=== PATIENT | male | born 1995 | race Caucasian/White ===

== ENCOUNTER 2022-06-14 16:06 | Emergency (ER) | payer OTHER, SELFPAY ==
[2022-06-14 16:28] VITALS: BP 146/95; PULSE 95; RESP 14; TEMP 37.7; O2SAT 100
--- NOTE | 2022-06-14 16:43 | ED.GENADULT ---
HPI - General Adult General Chief complaint: Nausea/Vomiting/Diarrhea Stated complaint: nausea Time Seen by Provider: 06/14/22 16:43 Source: patient Mode of arrival: ambulatory Limitations: no limitations History of Present Illness HPI narrative: 18-year-old male patient presents to [facility] where 1 of the knee about 1 week. Patient states he has had some low-grade fevers, body aches, chills denies any sore throat, congestion or headaches. Related Data Home Medications Medication Instructions Recorded Confirmed loratadine 10 mg tablet (Claritin) 10 mg PO DAILY 07/22/21 06/14/22 Allergies Allergy/AdvReac Type Severity Reaction Status Date / Time No Known Allergies Allergy Verified 06/14/22 16:27 Review of Systems Review of Systems: CONSTITUTIONAL: Has it fever, chills, or sweats. EYES: Denies visual changes, redness, or discharge. ENT: Denies rhinorrhea, congestion, sore throat, or otalgia. CARDIOVASCULAR: Denies chest pain, palpitations, or edema. RESPIRATORY: Denies cough or dyspnea. GASTROINTESTINAL: Denies abdominal pain, positive nausea, positive vomiting, denies diarrhea. GENITOURINARY: Denies dysuria or hematuria. SKIN: Denies rash or itching. MUSCULOSKELETAL: Denies back pain, joint pain, or myalgia. NEUROLOGIC: Denies headache, numbness, or weakness. PSYCHIATRIC: Denies anxiety or depression. PMFSH Past Medical History Medical History Cat allergies Family History Family History Mother Hypertension Grandparent Carcinoma of colon Malignant neoplasm of prostate Father Skin cancer Other Diabetes mellitus Family history of allergic disorder Family history of hypercholesterolemia Social History Social History Smoking status: Never smoker Alcohol intake: current Substance use: never Substance use type: does not use Comments at the time of my signature I agree with nursing past medical history, surgical, social, and family history. There is no relevant family history pertinent to the presenting complaint. Exam Narrative: GENERAL: Well-appearing, well-nourished, and in no acute distress. HEAD: Normocephalic, atraumatic. EYES: PERRLA and EOMI. ENT: Nares with erythema edema noted bilateral, no rhinorrhea or epistaxis. Mucous membranes moist. posterior pharynx with no erythema, tonsillar enlargement, exudates or lesions present. Bilateral TMs are clear no erythema or foreign bodies the canal. NECK: Supple. No lymphadenopathy CHEST: Clear to auscultation. No respiratory distress. HEART: Regular rate and rhythm. No murmur heard. Normal peripheral pulses. ABDOMEN: Soft, nontender, nondistended, normal active bowel sounds. EXTREMITIES: Normal range of motion. No edema. SKIN: Warm, dry, no rash. NEURO: No focal deficits. Alert and oriented x3. Course Course Level of Care: Express Care Visit Vital Signs Vital signs: Vital Signs Temperature 37.7 C H 06/14/22 16:28 Pulse Rate 95 06/14/22 16:28 Respiratory Rate 14 06/14/22 16:28 Blood Pressure 146/95 H 06/14/22 16:28 Pulse Oximetry 100 06/14/22 16:28 Oxygen Delivery Room Air 06/14/22 16:28 Temperature 37.7 C H 06/14/22 16:28 Pulse Rate 95 06/14/22 16:28 Respiratory Rate 14 06/14/22 16:28 Blood Pressure 146/95 H 06/14/22 16:28 Pulse Oximetry 100 06/14/22 16:28 Oxygen Delivery Room Air 06/14/22 16:28 Vital signs reviewed The patient has been informed that they may have pre-hypertension or Hypertension based on a BP reading in the department. I recommend that the patient call the primary care provider listed on their discharge instructions or a physician of their choice this week to arrange follow up for further evaluation of possible pre-hypertension or Hypertension Medical Decision Making [facility] Medical
== END 2022-06-14 16:49 | disposition home or self-care (01) ==
PROVIDERS: Emergency Provider Nurse Practitioner Family; PCP Family Medicine
DX: J10.1 Influenza due to other identified influenza virus with other respiratory manifestations (principal); Z20.822 Contact with and (suspected) exposure to COVID-19
CPT/HCPCS: 87426; 87804; 99212; C9803; G0463

== ENCOUNTER 2022-08-20 18:37 | Emergency (ER) | payer OTHER, SELFPAY ==
[2022-08-20 18:43] VITALS: BP 141/94; PULSE 77; RESP 18; TEMP 36.6; O2SAT 100
[2022-08-20] MEDS: TETANUS,DIPHTHERIA,AC PERTUSSIS ADULT (0.5 ML) BOOSTRIX IM (19:04)
--- NOTE | 2022-08-20 19:09 | ED.WOUNDLAC ---
HPI - Wound/Laceration General Chief Complaint: Wound/Laceration Stated Complaint: Cut Finger Lt Hand Time Seen by Provider: 08/20/22 18:53 Source: patient and RN notes reviewed Mode of arrival: ambulatory Limitations: no limitations History of Present Illness HPI narrative: Patient presents today complaining of a laceration to his left 3rd finger pad that was sustained approximately 2 hours prior to arrival when he cut himself with his circular saw at home. Denies numbness or tingling in the finger. Currently rates pain 2/10. His last tetanus shot was 5 years ago. Related Data Home Medications Medication Instructions Recorded Confirmed loratadine 10 mg tablet (Claritin) 10 mg PO DAILY 07/22/21 08/20/22 Allergies Allergy/AdvReac Type Severity Reaction Status Date / Time No Known Allergies Allergy Verified 08/20/22 18:57 Review of Systems Review of Systems: CONSTITUTIONAL: Denies body aches, fever, chills, or sweats. EYES: Denies visual changes, redness, or discharge. ENT: Denies rhinorrhea, congestion, sore throat, or otalgia. CARDIOVASCULAR: Denies chest pain, palpitations, or edema. RESPIRATORY: Denies cough or dyspnea. GASTROINTESTINAL: Denies abdominal pain, nausea, vomiting, or diarrhea. GENITOURINARY: Denies dysuria or hematuria. SKIN: + laceration to left 3rd finger MUSCULOSKELETAL: Denies back pain, joint pain, or myalgia. NEUROLOGIC: Denies headache, numbness, tingling, or weakness. PSYCH: Denies depression or anxiety. [facility] Past Medical History Medical History Cat allergies Family History Family History Mother Hypertension Grandparent Carcinoma of colon Malignant neoplasm of prostate Father Skin cancer Other Diabetes mellitus Family history of allergic disorder Family history of hypercholesterolemia Social History Social History Smoking status: Never smoker Alcohol intake: current Substance use: never Substance use type: does not use Comments At time of signature, I have reviewed and agree with nursing past medical, surgical, social and family history unless otherwise noted. Please see nursing chart for further information. There is no relevant family history pertinent to the presenting complaint Exam Narrative: GENERAL: Well-appearing, well-nourished, and in no acute distress. HEAD: Normocephalic, atraumatic. EYES: EOMI. No redness or drainage. Conjunctivae normal. ENT: Mucous membranes pink and moist. NECK: Normal AROM. CHEST: No respiratory distress. EXTREMITIES: Normal range of motion. No edema. Left 3rd finger: 1 cm partial thickness irregular laceration to the distal finger pad. Avulsion of skin present. Mild active bleeding. Distal sensation intact. Capillary refill. Full range of motion of the finger. SKIN: Warm, dry, no rash. Capillary refill normal. Normal skin turgor. NEURO: No focal deficits. Alert and oriented x3. Gait steady. PSYCH: Normal affect. No signs of depression or anxiety. Course Course Level of Care: Express Care Visit Vital Signs Vital signs: Vital Signs Temperature 97.9 F 08/20/22 18:43 Pulse Rate 77 08/20/22 18:43 Respiratory Rate 18 08/20/22 18:43 Blood Pressure 141/94 H 08/20/22 18:43 Pulse Oximetry 100 08/20/22 18:43 Oxygen Delivery Room Air 08/20/22 18:43 Temperature 97.9 F 08/20/22 18:43 Pulse Rate 77 08/20/22 18:43 Respiratory Rate 18 08/20/22 18:43 Blood Pressure 141/94 H 08/20/22 18:43 Pulse Oximetry 100 08/20/22 18:43 Oxygen Delivery Room Air 08/20/22 18:43 Reviewed. Pt has been instructed to follow up with his PCP regarding his elevated blood pressure today. MDM - Wound/Laceration MDM Narrative Medical decision making narrative: One piece of loose skin was trimmed fro
== END 2022-08-20 19:20 | disposition home or self-care (01) ==
PROVIDERS: Emergency Provider Nurse Practitioner; PCP Family Medicine
DX: S61.203A Unspecified open wound of left middle finger without damage to nail, initial encounter (principal); W27.0XXA Contact with workbench tool, initial encounter; Z23 Encounter for immunization
CPT/HCPCS: 90471; 90715; 99213; G0463

== ENCOUNTER 2024-12-30 17:12 | Emergency (ER) | payer OTHER, SELFPAY ==
[2024-12-30 17:45] VITALS: BP 140/94; PULSE 73; RESP 18; TEMP 36.4; O2SAT 98
--- NOTE | 2024-12-30 18:25 | ED_ITS ---
HPI - General Adult General Chief complaint: Wound/Laceration Stated complaint: RT Hand Pinky Finger Time Seen by Provider: 12/30/24 18:27 Source: patient Mode of arrival: ambulatory Limitations: no limitations History of Present Illness HPI narrative: 29-year-old male patient presents to the [facility] with complaints of a right pinky finger laceration. Patient states that he was cleaning some things out from under a bed and cut his finger on the cat food can that was open. Patient states last tetanus shot was approximately 2 years ago. Related Data Home Medications ?Medication ?Instructions ?Recorded ?Confirmed ?Last Taken ?Type cetirizine 10 mg capsule (Zyrtec) 10 mg PO DAILY PRN 0 06/29/23 06/29/23 Unknown History multivitamin 1 tablet PO DAILY 06/29/23 0 06/29/23 Unknown History Allergies Allergy/AdvReac Type Severity Reaction Status Date / Time No Known Allergies Allergy Verified 12/30/24 17:55 Review of Systems Review of Systems: CONSTITUTIONAL: Denies fever, chills, or sweats. EYES: Denies visual changes, redness, or discharge. ENT: Denies rhinorrhea, congestion, sore throat, or otalgia. CARDIOVASCULAR: Denies chest pain, palpitations, or edema. RESPIRATORY: Denies cough or dyspnea. GASTROINTESTINAL: Denies abdominal pain, nausea, vomiting, or diarrhea. GENITOURINARY: Denies dysuria or hematuria. SKIN: Denies rash or itching. Positive laceration to right pinky finger MUSCULOSKELETAL: Denies back pain, joint pain, or myalgia. NEUROLOGIC: Denies headache, numbness, or weakness. PSYCHIATRIC: Denies anxiety or depression. [facility] Past Medical History Medical History Cat allergies Family History Family History Mother Hypertension Grandparent Carcinoma of colon Malignant neoplasm of prostate Father Skin cancer Other Diabetes mellitus Family history of allergic disorder Family history of hypercholesterolemia Social History Social History Smoking status: Never smoker Second hand tobacco smoke exposure: No Alcohol intake: current Substance use: never Substance use type: does not use Do You Feel Safe in your Home?: Yes Lack of Transportation: No Lack of Food: Never True Current Housing: I Have Housing Concerned About Future Housing: No Difficulty Paying Gas/Electric Bills: No Difficulty Paying for Meds: No Currently Unemployed: No Education: Bachelor's Degree Difficulty w/ Childcare or Family Care: No Living arrangements: with family Occupation/Education: occupation Gender identity (if verbalized by the patient): Male Spiritual care concerns: No Agree to blood products: Yes Exam Narrative: GENERAL: Well-appearing, well-nourished, and in no acute distress. HEAD: Normocephalic, atraumatic. EYES: PERRLA and EOMI. ENT: Nares clear, no rhinorrhea or epistaxis. Mucous membranes moist. NECK: Supple. No lymphadenopathy CHEST: Clear to auscultation. No respiratory distress. HEART: Regular rate and rhythm. No murmur heard. Normal peripheral pulses. ABDOMEN: Soft, nontender, nondistended, normal active bowel sounds. EXTREMITIES: Normal range of motion. No edema. SKIN: Warm, dry, no rash. patient has approximately 1.5 cm linear laceration it in between the D IP and PIP joints the laceration does not have a gaping opening and no fat exposure. Bleeding is controlled NEURO: No focal deficits. Alert and oriented x3. Course Course Level of Care: Express Care Visit Vital Signs Vital signs: Vital Signs Temperature 36.4 C L 12/30/24 17:45 Pulse Rate 73 12/30/24 17:45 Respiratory Rate 18 12/30/24 17:45 Blood Pressure 140/94 H 12/30/24 17:45 Pulse Oximetry 98 12/30/24 17:45 Oxygen Delivery Room Air 12/30/24 17:45 Temperature 36.4 C L 12/30/24 17:45 Pulse Rate 73 12/30/24 17:45 Respiratory Rate 18 12/30/24 17:45 Blood Pressure 140/94 H 12/30/24 17:45 Pulse Oximetry 98 12/30/24 17:45 Oxygen Delivery Room Air 12/30/24 17:45 vital signs reviewed. The patient has been informed that they may have pre-hypertension or Hypertension based on a BP reading in the department. I recommend that the patient call the primary care provider listed on their discharge instructions or a physician of their choice this week to arrange follow up for further evaluation of possible pre-hypertension or Hypertension Procedures Laceration Laceration 1: Date: 12/30/24 Time: 18:57 Site: hand Side (If applicable): right Size (cm): 1.5 Description: linear Local Anesthetic: none Pre-repair: irrigated ====== Skin Level ====== ====== Subcutaneous Layer ====== ====== Muscle Layer ====== ====== Tendon Layer ====== Dressing: Sterile drape and prep were done. Copious irrigation was done with saline and Shur-Clens and the wound was explored. There was no foreign body or deep structure injury noted. Patient had good range of motion under anesthesia. Wound edges were approximated with good alignment using skin adhesive and Steri- Strips. There were 2 Steri-Strips placed. nonadherent dressing over it with 4 x 4's and wrapped with gauze. The patient tolerated the procedure well without adverse effects. Medical Decision Making MDM Narrative Medical decision making narrative: Plan care for patient is to go ahead and glue and Steri-Strips the laceration since it is not on a joint and is not very open gaping wound. Patient is aware of this pain care and is Differential Diagnosis Differential Diagnosis: Differential diagnosis: Simple, intermediate, or complex laceration. Vital Signs Vital Signs: Vital Signs Temperature 36.4 C L 12/30/24 17:45 Pulse Rate 73 12/30/24 17:45 Respiratory Rate 18 12/30/24 17:45 Blood Pressure 140/94 H 12/30/24 17:45 Pulse Oximetry 98 12/30/24 17:45 Oxygen Delivery Room Air 12/30/24 17:45 Temperature 36.4 C L 12/30/24 17:45 Pulse Rate 73 12/30/24 17:45 Respiratory Rate 18 12/30/24 17:45 Blood Pressure 140/94 H 12/30/24 17:45 Pulse Oximetry 98 12/30/24 17:45 Oxygen Delivery Room Air 12/30/24 17:45 Critical Care Time Critical Care Time Critical Care Time: No Discharge Plan Discharge Clinical Impression: Laceration of right little finger Qualifiers: Encounter type: initial encounter Damage to nail status: without damage Foreign body presence: without foreign body Qualified Code(s): S61.216A - Laceration without foreign body of right little finger without damage to nail, initial encounter Patient Disposition: Home Condition: Stable Instructions: Antibiotic Form, Finger Laceration (ED) Additional Instructions: -adhesive works like a bandage; do not use antibiotic onitment as it can break down the adhesive -You can shower while the adhesive is on your skin, but do not take a bath or soak or scrub the area for 7-10 days. Dry your skin by patting it gently with a towel. -The adhesive will peel off on its own; usually by 5-10days. If after 10 days, you still have adhesive on you, you can use antibiotic ointment or petroleum jelly to get it off. After you heal, you should protect the scar from the sun. Use sunscreen on the area or wear clothes or a hat that covers the scar. Follow up with your PCP is needed Patient Language: Burkinan Prescriptions: No Action Zyrtec 10 mg capsule 10 mg PO DAILY PRN multivitamin Tablet 1 tablet PO DAILY Follow-up/Referrals: Sheng Bryson MD [Primary Care Provider, [facility]] Time of Disposition: 18:53
== END 2024-12-30 19:02 | disposition home or self-care (01) ==
PROVIDERS: Emergency Provider Nurse Practitioner Family; PCP Family Medicine
DX: S61.216A Laceration without foreign body of right little finger without damage to nail, initial encounter (principal); W45.8XXA Other foreign body or object entering through skin, initial encounter
CPT/HCPCS: 12001; 99212; G0463